=== PATIENT | male | born 1980 | race Caucasian/White ===

== ENCOUNTER 2019-12-23 04:16 | Emergency (ER) | payer MEDICAID, SELFPAY ==
[2019-12-23 04:17] VITALS: BP 156/110; PULSE 108; RESP 20; TEMP 36.6; O2SAT 97; BMI 28.1
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
[2019-12-23] MEDS: Diphth,Pertuss(Acell),Tet Vac 0.5 ML Vial IM (04:39)
[2019-12-23] MEDS: morphine 10 MG/ML Syringe IM (04:39)
[2019-12-23 05:16] VITALS: BP 145/89; PULSE 93; RESP 17; O2SAT 99
[2019-12-23 06:16] VITALS: BP 146/88; PULSE 86; RESP 15; O2SAT 100
[2019-12-23 07:17] VITALS: BP 127/69; PULSE 99; RESP 12; O2SAT 99
--- NOTE | 2019-12-23 07:23 | ED.RN ---
kiara from transfer center at [facility] stated that this RN did not need to give report, they us the report that our dr gave.
[2019-12-23] MEDS: Ondansetron 4 MG/2 ML Vial IV (08:23)
[2019-12-23] MEDS: Morphine 4 MG/ML Syringe IV (08:23)
== END 2019-12-23 08:15 | disposition short-term general hospital (02) ==
PROVIDERS: Emergency Provider Emergency Medicine; PCP Family Medicine
DX: S12.600A Unspecified displaced fracture of seventh cervical vertebra, initial encounter for closed fracture (principal); V49.88XA Car occupant (driver) (passenger) injured in other specified transport accidents, initial encounter; Y93.C2 Activity, hand held interactive electronic device; Y93.89 Activity, other specified; Y92.410 Unspecified street and highway as the place of occurrence of the external cause
CPT/HCPCS: 70450; 71250; 72125; 90715; 96374; 96375; 96376; 99285; J2405

== ENCOUNTER 2022-02-22 10:52 | Emergency (ER) | payer MEDICAID, SELFPAY ==
[2022-02-22 10:53] VITALS: BP 125/84; PULSE 104; RESP 18; TEMP 35.9; O2SAT 98; BMI 27.8
[2022-02-22] MEDS: Lidocaine 1% (20 ml mdv) 20 ML Vial INFILT (14:08)
[2022-02-22] MEDS: HYDROcodone Bitartrate/Apap 5/325 Tablet PO (14:08)
[2022-02-22] MEDS: Lidocaine 1% (20 ml mdv) 20 ML Vial 30 ML INFILT (14:09)
--- NOTE | 2022-02-22 15:09 | ED.VIS.LOWEX ---
HPI History of Present Illness Chief Complaint: Wound Narrative Narrative: 41-year-old male presenting with infection of the left lower leg. It is just below his knee on the medial aspect. He states its red and swelling here. He thinks he has a spider bite. Patient states he took some home antibiotics that he got from a friend. He does not know what these are. No systemic signs or symptoms. He does not have joint pain of the left knee. Patient does note that he has had a small area which is draining intermittently. No history of abscess. No history of MRSA. PFSH PFSH Home Medications clindamycin HCl 450 mg PO TID 10 Days #90 cap 02/22/22 [Rx Last Taken Unknown] hydrocodone-acetaminophen 1 tab PO Q6H PRN 3 Days #10 tab 02/22/22 [Rx Last Taken Unknown] Allergy/AdvReac Type Severity Reaction Status Date / Time No Known Allergies Allergy Verified 12/23/19 04:33 Social History Smoking Status: Current every day smoker tobacco type: cigarettes ROS ROS ED Constitutional Constitutional ED: Denies chills, fever(s) or sweats Eyes Eyes: Denies blurry vision or change in vision ENT ENT ED: Denies ear pain or sore throat Cardiovascular Cardiovascular: Denies chest pain, palpitations or racing heartbeat Respiratory/Chest Respiratory/Chest: Denies cough, dyspnea or sputum Gastrointestinal Gastrointestinal: Denies abdominal pain, constipation, diarrhea, nausea or vomiting Genitourinary Genitourinary ED: Denies dysuria, hematuria or urinary frequency Musculoskeletal Musculoskeletal: Denies arthralgias, myalgias or neck pain Integumentary Reports abscess and rash Neurologic Neurologic: Denies headache(s), paresthesias or weakness Psychiatric Psychiatric: Denies anxiety, depression, suicidal ideation or suicidal thoughts Endocrine Endocrinology: Denies polydipsia or polyuria EXAM Physical Exam Const Vital Signs: 02/22/22 10:53 Temperature 96.6 F L Temperature Source Temporal Pulse Rate 104 H Respiratory Rate 18 Blood Pressure 125/84 H Blood Pressure Mean 97 Pulse Ox 98 Oxygen Delivery Method Room Air Positive well nourished General Appearance ED: NAD HEENT Reports moist mucous membranes normocephalic and atraumatic Resp normal respiratory effort and clear to auscultation bilaterally Cardio regular rate and regular rhythm Extremity Extremity Narrative: No pain with short arc range of motion of the left knee. Neuro oriented x3 and CN's II-XII intact bilaterally Sensorium / Orientation: alert Psych mental status grossly normal Skin Skin Narrative: 2 cm abscess inferior to the left knee medially. No lymphangitic streaking. Mild surrounding cellulitis. MDM MDM MDM Narrative Medical decision making narrative: Patient seen and evaluated for small abscess inferior to the knee. Does not involve the joint. Mild surrounding cellulitis. Patient's wound was cleaned with Shur-Clens. He is a small superficial abscess about 2 cm. There is some surrounding cellulitis. Patient's wound was anesthetized with 3 cc of lidocaine without epinephrine. Good anesthesia achieved. An 11 blade scalpel was used to unroofed the eschar over of the abscess. Purulent drainage was expressed. This was superficial and was irrigated with 500 cc of sterile saline. No loculations. Wound was cleaned and dressed. Patient started on clindamycin in the ER. He was given a prescription for antibiotics as well as [place] for pain. Patient will follow up with his primary care provider or return to ER for new or worsening symptoms. Impression: 1. 2 cm abscess 2. Cellulitis Discharge Plan Triage Chief Complaint: Wound ED Provider: Ross Metzger Dx/Rx/DC Orders Instructions: ED Abscess Incision And Drainage Prescriptions: New clindamycin HCl 150 mg capsule 450 mg PO TID 10 Days Qty: 90 RF: 0 hydrocodone-acetaminophen 5-325 mg tablet 1 tab PO Q6H PRN (Reason: pain) 3 Days Qty: 10 RF: 0 Primary Care Provider: Aj Barnhart Referrals: Aj Barnhart DO [Primary Care Provider] - Disposition Disposition: Home, Self Care Discharge Date/Time: 02/22/22 14:13
== END 2022-02-22 14:13 | disposition home or self-care (01) ==
PROVIDERS: Emergency Provider Student in an Organized Health Care Education/Training Program; PCP Family Medicine; Visit Provider Student in an Organized Health Care Education/Training Program
DX: S39.012A Strain of muscle, fascia and tendon of lower back, initial encounter (principal); J44.9 Chronic obstructive pulmonary disease, unspecified; X58.XXXA Exposure to other specified factors, initial encounter; F17.210 Nicotine dependence, cigarettes, uncomplicated; G57.01 Lesion of sciatic nerve, right lower limb; I25.10 Atherosclerotic heart disease of native coronary artery without angina pectoris; I25.2 Old myocardial infarction; I10 Essential (primary) hypertension; K21.9 Gastro-esophageal reflux disease without esophagitis; M19.90 Unspecified osteoarthritis, unspecified site; Z79.899 Other long term (current) drug therapy; Z79.82 Long term (current) use of aspirin
CPT/HCPCS: 10060; 99283

== ENCOUNTER 2022-06-26 20:00 | Emergency (ER) | payer MEDICAID, SELFPAY ==
[2022-06-26 20:01] VITALS: BP 132/97; PULSE 108; RESP 15; TEMP 36.2; O2SAT 96; BMI 25.7
--- NOTE | 2022-06-26 20:44 | EDS_ITS ---
HPI HPI - URI History of Present Illness Chief Complaint: Shortness of Breath Narrative Narrative: 41-year-old male with mild cough, subjective fevers, body aches, chills from home for about 3 days. Patient is no change in taste or smell. No nausea or vomiting. No abdominal pain. Diarrhea noted. No known sick contacts. ROS ROS ED Constitutional Constitutional ED: Reports fever(s) and subjective Eyes Eyes: Denies change in vision or diplopia ENT ENT ED: Denies rhinorrhea or sore throat Cardiovascular Cardiovascular: Denies chest pain or palpitations Respiratory/Chest Respiratory/Chest: Reports cough; Denies dyspnea or dyspnea on exertion Gastrointestinal Gastrointestinal: Denies abdominal pain, diarrhea, nausea or vomiting Genitourinary Genitourinary ED: Denies dysuria or hematuria Musculoskeletal Musculoskeletal: Denies arthralgias Integumentary Denies abscess or Abrasions Neurologic Neurologic: Reports headache(s); Denies paresthesias or weakness PFSH PFSH Medical History Broken neck Medical History no medical history Home Medications NK 06/26/22 [History Last Taken Unknown] Allergy/AdvReac Type Severity Reaction Status Date / Time No Known Allergies Allergy Verified 06/26/22 20:05 Social History Smoking Status: Current every day smoker tobacco type: cigarettes EXAM Physical Exam Const Vital Signs: 06/26/22 20:01 06/26/22 20:15 Temperature 97.2 F L Temperature Source Temporal Pulse Rate 108 H Respiratory Rate 15 Respiratory Effort Normal Non-Labored Respiratory Depth Normal Respiratory Pattern Normal Blood Pressure 132/97 H Blood Pressure Mean 108 Pulse Ox 96 Oxygen Delivery Method Room Air Room Air Positive well nourished General Appearance ED: Negative for pallor HEENT Reports normocephalic, head/scalp atraumatic and moist mucous membranes Eyes PERRL and EOMs intact bilaterally Neck no lymphadenopathy and supple Resp normal respiratory effort and clear to auscultation bilaterally Auscultation: Negative for rales, rhonchi or wheezes Cardio regular rate and regular rhythm GI normal to inspection, nondistended, normoactive bowel sounds and non-distended Narrative: Deferred Extremity normal to inspection General Extremety ED: Yes edema and tenderness General Extremity: edema Neuro oriented x3 and CN's II-XII intact bilaterally Sensorium / Orientation: alert Motor Exam: strength 5/5 throughout Psych mental status grossly normal Attitude: No agitated Skin no rashes or lesions noted and no wounds General Skin Exam: Negative for jaundice or pallor MDM MDM MDM Narrative Medical decision making narrative: Patient presenting with mild symptoms of body aches, chills, subjective fevers. He does not know if he had a fever because he does not have a thermometer. He is afebrile here. His physical exam is unremarkable. His vital signs are stable. Patient states he does not anything for pain, nausea. He is well- appearing. I tested him for COVID and this is negative. Patient to alternate Tylenol and ibuprofen at home. Return precautions were discussed. Impression: 1. Viral syndrome 2. Myalgias 3. Chills Lab Data Attestation: I reviewed the patient's lab results. Discharge Plan Triage Chief Complaint: Shortness of Breath ED Provider: Ross Metzger Dx/Rx/DC Orders Instructions: ED Viral Syndrome (Adult) Prescriptions: No Action NK Primary Care Provider: Aj Barnhart Referrals: Aj Barnhart, [Primary Care Provider] - Disposition Disposition: Home, Self Care
[2022-06-26 21:11] VITALS: RESP 18
== END 2022-06-26 21:13 | disposition home or self-care (01) ==
PROVIDERS: Emergency Provider Student in an Organized Health Care Education/Training Program; PCP Family Medicine; Visit Provider Student in an Organized Health Care Education/Training Program
DX: B34.9 Viral infection, unspecified (principal); F17.210 Nicotine dependence, cigarettes, uncomplicated
CPT/HCPCS: 87811; 99282

== ENCOUNTER 2024-02-20 22:13 | Emergency (ER) | payer MEDICAID, SELFPAY ==
[2024-02-20 22:15] VITALS: BP 149/109; PULSE 89; RESP 18; TEMP 36.6; O2SAT 99; BMI 34.0
--- NOTE | 2024-02-20 23:31 | EX.ED.UPPERE ---
HPI History of Present Illness Chief Complaint: Laceration Informant: patient Narrative Narrative: Accidentally cut right index finger on a car door and while he was working on a car earlier today. Initially he used some type of skin adhesive that they had at the shop he was at, but is not holding and he is asking for it to be sutured. [id number]. Tetanus Immunization: <5 years PFSH PFS Medical History Broken neck Home Medications cephalexin 500 mg capsule 500 mg PO Q6 #40 CAPSULES 02/21/24 [Rx Last Taken Unknown] Allergy/AdvReac Type Severity Reaction Status Date / Time No Known Allergies Allergy Verified 02/20/24 22:15 Social History Smoking Status: Current every day smoker tobacco type: cigarettes alcohol intake: never ROS ROS ED Constitutional Constitutional ED: Denies chills or fever(s) Musculoskeletal Musculoskeletal: Reports extremity pain; Denies neck pain Integumentary Reports wounds; Denies Abrasions or rash Neurologic Neurologic: Denies paresthesias or weakness EXAM Physical Exam Const Vital Signs: 02/20/24 22:15 Temperature 97.9 F Temperature Source Temporal Pulse Rate 89 Respiratory Rate 18 Blood Pressure 149/109 H Blood Pressure Mean 122 Pulse Ox 99 Positive well nourished and well developed General Appearance ED: well developed and NAD Neck full ROM and supple Back/Spine normal ROM and normal to inspection Extremity Extremity Narrative: Laceration across proximal aspect of the right index finger dorsal proximal phalanx. Extensor mechanism intact. Mildly tender at this area. Partially held together by transparent glue. Neuro oriented x3, no focal motor deficits and no sensory deficits noted Sensorium / Orientation: alert Psych mental status grossly normal and thought process normal Skin Skin Narrative: Laceration to the dorsal aspect of the right index finger approximately 3 cm full-thickness clean appearing L-shaped involving extensor tendon which is completely lacerated within the wound center, and retracts distally out of site with passive flexion at the DIPJ. Remnants of glue to the skin around the laceration. Rashes: no rashes MDM MDM MDM Narrative Medical decision making narrative: Patient appears to have lacerated through tendon. He does have some mild erythema and swelling at the MCPJ just proximal to the laceration, given the tendon involvement on that, we will place him on cephalexin and refer [facility] Given appropriate discharge instructions and referral. Splinted into extension. Procedures Lacerations Right index finger: Length: 3 cm Depth: Tendon Shape: Linear (L-shaped that one of the ends) Prep: Sterile Conditions and Chlorhexadine Laceration repair: Lidocaine (3cc, plain 1%), Local and Skin sutures Irrigated (ml): 80 Number of Sutures/Harry: 6 Suture Information: Ethilon, Simple and 5-0 Upper Extremity Splints Upper Extremity Splint: Alumifoam Splint Fabrication: Fabricated Location: Right (Index finger, splinted in extension, neurovascular intact distally. I supervised nurse.) Discharge Plan Triage Chief Complaint: Laceration ED Provider: Joseph Alvarez Dx/Rx/DC Orders Clinical Impression: Laceration of right index finger with tendon involvement Instructions: ED Laceration, Hand: All Closures, ED Tendon Laceration Prescriptions: New cephalexin [cephalexin] 500 mg capsule 500 mg PO Q6 Qty: 40 0RF Primary Care Provider: Aj Barnhart Referrals: Hand, surgery [Other] (See below) Aj Barnhart, [Primary Care Provider] - Activity Restrictions/Additional Instructions: Hand and upper extremity care [address] [facility] [address] [address] [facility] [place] [address] [place] [address] [facility] Disposition Disposition: Home, Self Care
[2024-02-20] MEDS: Lidocaine 1% (20 ml mdv) 20 ML Vial INFILT (23:40)
[2024-02-21] MEDS: Cephalexin 250 MG Capsule 500 MG PO (01:40)
[2024-02-21] MEDS: Ibuprofen 600 MG Tablet PO (02:00)
[2024-02-21 02:04] VITALS: BP 132/74; PULSE 79; RESP 18; TEMP 36.6; O2SAT 99
== END 2024-02-21 02:05 | disposition home or self-care (01) ==
PROVIDERS: Emergency Provider Emergency Medicine; PCP Family Medicine; Visit Provider Emergency Medicine
DX: S66.320A Laceration of extensor muscle, fascia and tendon of right index finger at wrist and hand level, initial encounter (principal); W26.8XXA Contact with other sharp object(s), not elsewhere classified, initial encounter; Y93.89 Activity, other specified; Y99.8 Other external cause status; F17.210 Nicotine dependence, cigarettes, uncomplicated
CPT/HCPCS: 26418; 99285

== ENCOUNTER 2024-03-01 14:44 | Emergency (ER) | payer MEDICAID, SELFPAY ==
[2024-03-01 14:45] VITALS: BP 127/90; PULSE 98; RESP 16; TEMP 36.4; O2SAT 97; BMI 34.0
== END 2024-03-01 17:50 | disposition left against medical advice (07) ==
LOC: ED 17:56
PROVIDERS: PCP Family Medicine
DX: R69 Illness, unspecified (principal); Z53.21 Procedure and treatment not carried out due to patient leaving prior to being seen by health care provider